=== PATIENT | female | born 1940 | race Caucasian/White ===

== ENCOUNTER 2017-12-13 07:17 | Emergency (ER) | payer OTHER ==
[~2017-12-13] VITALS: Ht 157.5 cm; Wt 70.3 kg
[2017-12-13] MEDS ORDERED: AVAPRO150 MG (07:43)
[2017-12-13] MEDS ORDERED: METFORMIN HCL850 MG (07:43)
[2017-12-13] MEDS ORDERED: ASPIR-LOW81 MG (07:43)
[2017-12-13] MEDS ORDERED: CILOSTAZOL50 MG (07:44)
[2017-12-13] MEDS ORDERED: CLONAZEPAM1 MG (07:44)
[2017-12-13] MEDS ORDERED: SYNTHROID112 MCG (07:44)
[2017-12-13] MEDS ORDERED: LIPITOR40 MG (07:44)
[2017-12-13] MEDS ORDERED: CYMBALTA60 MG (07:45)
== END 2017-12-13 20:36 | disposition home or self-care (01) ==
LOC: ER 07:17 → CPU-OBS 07:19 → ER 20:36
DX: R07.89 Other chest pain (principal); R55 Syncope and collapse; R00.1 Bradycardia, unspecified; E87.1 Hypo-osmolality and hyponatremia

== ENCOUNTER 2021-01-04 06:47 | Emergency (ER) | payer OTHER ==
[~2021-01-04] VITALS: Ht 157.5 cm; Wt 60.8 kg
[~2021-01-04 06:47] MED LIST: ASPIR-LOW81 MG; AVAPRO150 MG; CILOSTAZOL50 MG; CLONAZEPAM1 MG; CYMBALTA60 MG; LIPITOR40 MG; METFORMIN HCL850 MG; SYNTHROID112 MCG
== END 2021-01-04 10:37 | disposition home or self-care (01) ==
LOC: ER 06:47
DX: R11.2 Nausea with vomiting, unspecified (principal); R10.13 Epigastric pain; F13.939 Sedative, hypnotic or anxiolytic use, unspecified with withdrawal, unspecified

== ENCOUNTER → 2022-01-10 | Emergency (ER) | payer OTHER ==
[~2022-01-10] VITALS: Ht 157.5 cm; Wt 70.3 kg
[~2022-01-10] MED LIST changes: +ALDACTONE25 MG PO; +AMLODIPINE BESYL5 MG PO; +ATORVASTATIN CA40 MG; +CHILDREN'S ASPI81 MG PO; +METFORMIN HCL500 M1 PO; +METOPROLOL SUCC25 MG PO; +NAMENDA10 MG PO; +PLAVIX75 MG PO; +VALSARTAN320 MG PO
== END | disposition home or self-care (01) ==
LOC: ER 09:12
DX: R00.1 Bradycardia, unspecified (principal); I48.91 Unspecified atrial fibrillation; I73.9 Peripheral vascular disease, unspecified; E11.9 Type 2 diabetes mellitus without complications; Z79.84 Long term (current) use of oral hypoglycemic drugs; I10 Essential (primary) hypertension; Z20.822 Contact with and (suspected) exposure to COVID-19; Z88.0 Allergy status to penicillin